=== PATIENT | male | born 2000 | race Caucasian/White ===

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

== ENCOUNTER 2023-02-18 17:03 | Emergency (ER) | payer OTHER, SELFPAY ==
--- NOTE | ~2023-02-18 | XR_ITS ---
EXAM: XR abdomen/kub 1V DATE: 02/18/2023 18:02 HISTORY: abdominal pain LLQ for about 1 week . COMPARISON: None available. FINDINGS: Clear lung bases. Normal bowel gas pattern. No organomegaly. No abnormal abdominal calcifi cation. Regional bones and soft tissues normal for age. IMPRESSION: Normal abdominal radiograph findings. Reviewed, dictated and finalized at location K.
[2023-02-18 17:20] VITALS: BP 130/71; PULSE 77; RESP 16; TEMP 36.3; O2SAT 100
--- NOTE | 2023-02-18 17:42 | ED.GENADULT ---
HPI - General Adult General Chief complaint: Abdominal Pain Stated complaint: nausea,abdominal pain Time Seen by Provider: 02/18/23 17:43 Source: patient Mode of arrival: ambulatory Limitations: no limitations History of Present Illness HPI narrative: patient is a 22-year-old male who presents with lower abdominal pain and constipation. Patient states last bowel movement was Friday after taking Dulcolax. Patient states pain started prior to that bowel movement and has increased since. Patient takes Linzess to have a bowel movement, but it has not been working lately. Patient did a self enema at home prior to arrival and reports only 2 small, hard pieces of bowel movement past. Patient has a wire setter appointment on Friday, but is concerned for worsening pain today. Patient denied any blood in last bowel movement or in fluids after enema. Denies any fever, chills, nausea, vomiting. Denies any urinary symptoms, testicular pain, penile discharge. has not taken any Tylenol, ibuprofen or naproxen for abdominal pain. Related Data Home Medications Medication Instructions Recorded Confirmed dextroamphetamine-amphetamine ER 5 5 mg PO DAILY 02/18/23 02/18/23 mg 24hr capsule,extend release linaclotide 290 mcg capsule 290 mcg PO DAILY 02/18/23 02/18/23 (Linzess) sertraline 25 mg tablet 25 mg PO HS 02/18/23 02/18/23 Allergies Allergy/AdvReac Type Severity Reaction Status Date / Time No Known Allergies Allergy Verified 02/18/23 17:20 Review of Systems Review of Systems: All systems reviewed & are unremarkable except as noted in HPI and below Constitutional: Constitutional: Denies body ache(s), Denies chills, Denies fatigue, Denies fever(s), Denies headache(s), Denies malaise and Denies weakness Eyes: Eyes: Denies blurry vision, Denies irritation and Denies loss of vision ENT: Denies otalgia, Denies headache(s), Denies nasal discharge, Denies sinus pain and Denies sore throat Cardiovascular: Cardiovascular: Denies chest pain, Denies irregular heart rhythm and Denies dyspnea Respiratory: Respiratory: Denies dyspnea Gastrointestinal: Gastrointestinal: Reports abdominal pain, Denies melena, Denies hematochezia, Reports constipation, Denies diarrhea, Reports nausea ( with eating) and Denies vomiting Musculoskeletal: Musculoskeletal: Denies back pain, Denies myalgias and Denies arthralgias Integumentary/Breasts: Skin/Breast: Denies pruritus and Denies rash Neurologic: Denies headache(s), Denies loss of vision and Denies weakness Psychiatric: Psychiatric: Reports no additional psychiatric complaints Endocrine: Endocrine: Denies fatigue PMFSH Comments At time of signature, agree with nursing past medical, surgical, social and family history. There is no relevant family history pertinent to the presenting complaint. Exam Const: General: cooperative, healthy appearing, comfortable, no acute distress and well nourished Nutritional Appearance: well nourished Orientation/consciousness: patient oriented x3 Limitations: no limitations HENMT: Head: normal to inspection, normocephalic and atraumatic Ears: hearing grossly normal bilaterally and external ears normal Face/Nose/Sinus: Normal external nose present, normal facial exam and face symmetric Face and sinus: normal facial exam and face symmetric Mouth: Yes lip normal Eyes: General: appearance normal, both eyes and all related structures Alignment and Position: alignment normal and position normal Periorbital: periorbital findings normal Eyelids: eyelids normal Pupils: Equal, round and reactive pupils present EOM: EOMs intact bilaterally Neck: Neck: normal visual inspection, full ROM and supple Chest: Chest palpation & inspection: normal inspection of the chest Resp: Effort & Inspection: normal respiratory effort and able to speak in complete sentences Auscultation: clear to auscultation bilaterally Cardio: Rate: regular rate Rhythm: regular rhythm H
== END 2023-02-18 18:49 | disposition home or self-care (01) ==
PROVIDERS: Emergency Provider Nurse Practitioner Family; PCP Family Medicine
DX: K59.00 Constipation, unspecified (principal); K21.9 Gastro-esophageal reflux disease without esophagitis; F90.9 Attention-deficit hyperactivity disorder, unspecified type; F41.9 Anxiety disorder, unspecified; F32.A Depression, unspecified
CPT/HCPCS: 74018; 81003; 99213; G0463

== ENCOUNTER 2023-03-14 17:07 | Emergency (ER) | payer OTHER, SELFPAY ==
--- NOTE | ~2023-03-14 | CT_ITS ---
EXAMINATION: CT abdomen pelvis w con DATE: 03/14/2023 19:54 INDICATION: Mild upper abdominal pain, nausea and constipation TECHNIQUE: Computed tomography (CT) of the abdomen and pelvis was performed with 100 mL Omnipaque-350 intravenous contrast. Automated exposure control and iterative reconstruction technique were employe d. The dose-length product was 249.36 mGy-cm. COMPARISON: None FINDINGS: Lung bases are clear. Heart size is normal. No pericardial or pleural effusion. Liver, gallbladder, s pleen, pancreas, bilateral adrenal glands and kidneys are normal. Moderate amount of stool scattered throughout the colon consistent with provided history of constipation. No dilated loops of bowel to s uggest obstruction. There is retained oral contrast material within the normal appendix. Bladder is n ormal. No free intraperitoneal gas or fluid. No pathologically enlarged abdominal or pelvic lymphaden opathy. Bones are unremarkable. IMPRESSION: 1. Moderate amount of colonic stool consistent with provided history of constipation. No other acute intra-abdominal/pelvic process. Reviewed, dictated and finalized at location A. IMPRESSION: 1. Moderate amount of colonic stool consistent with provided history of constip ation. No other acute intra-abdominal/pelvic process.
[2023-03-14 17:10] VITALS: BP 128/69; PULSE 71; RESP 16; TEMP 36.6; O2SAT 100
[2023-03-14 18:26] LABS: Basophils Percent Auto 0.1 % (0.2-1.2); Eosinophils Percent Auto 0.4 % (0-4.4); Hematocrit 42.6 % (42.0-52.0); Immature Granulocyte Absolute 0.01 K/mm3 (0.00-0.031); Immature Granulocyte Percent A 0.1 % (0-0.5); Lymphocytes Absolute Auto 1.83 K/mm3 (0.9-3.2); Lymphocytes Percent Auto 27.4 % (18.3-44.2); Mean Corpuscular HGB Conc 32.9 g/dl (32-36); Mean Corpuscular Hemoglobin 29.4 pg (26-34); Mean Corpuscular Volume 89.5 fl (80-100); Monocytes Absolute Auto 0.6 K/mm3 (0.1-0.6); Monocytes Percent Auto 8.2 % (2.6-8.5); Neutrophils Absolute Auto 4.2 K/mm3 (1.3-6.7); Neutrophils Percent Auto 63.8 % (45.5-73.1); Platelet Count Result 205 k/mm3 (150-375); Red Blood Count 4.76 M/mm3 (4.6-6.20); White Blood Count 6.7 K/mm3 (4.5-10.0)
[2023-03-14 18:35] LABS: Alanine Aminotransferase 17 U/L (6-50); Albumin Level 4.4 g/dL (3.5-5.1); Alkaline Phosphatase 45 U/L (38-126); Anion Gap 6 mmol/L (8-16); Aspartate Amino Transferase 26 U/L (17-59); Bilirubin,Total 0.4 mg/dL (0.2-1.3); Blood Urea Nitrogen 19 mg/dL (9-20); Carbon Dioxide 31 mmol/L (22-30); Chloride 103 mmol/L (98-107); Estimated CRCL calculation 114 ml/min; Estimated Glomerular Filt Rate > 60; Glucose 92 mg/dL (65-110); Lipase 91 U/L (23-300); Sodium 140 mmol/L (137-145)
[2023-03-14 18:52] LABS: Appearance Urine Clear (Clear); Bilirubin Urine Negative (Negative); Blood Urine Negative (Negative); Color Urine Yellow (Yellow); Glucose Urine UA Negative (Negative); Ketones Urine Negative (Negative); Leukocyte Esterase Ur Negative LEU/UL (Negative); Nitrate Urine Negative (Negative); Protein Urine Negative (Negative); Specific Grav Ur 1.013 (1.001-1.035); Urobilinogen Urine 0.2 mg/dL (<2.0); pH Urine 6.5 (5.0-9.0)
--- NOTE | 2023-03-14 18:52 | ED.ABDPAIN ---
HPI - Abdominal Pain General Chief Complaint: Abdominal Pain Stated Complaint: abd pain Time Seen by Provider: 03/14/23 17:20 Source: patient Mode of arrival: ambulatory Limitations: no limitations History of Present Illness HPI narrative: Patient is a 22 y/o male who presents to the ED with c/o abdominal pain. Patient reports having daily constant abdominal pain for the last 1 month, which waxes and wanes in intensity. He states pain is located in the distribution of his colon, typically worse throughout his lower abdomen in the morning and progresses in an upside down U-shape to his upper abdomen. Pain worse with walking, bending over. He has been evaluated for this several times at outside urgent cares. He has tried taking ibuprofen, Tums without relief. He does have a Hx of chronic constipation, but states he has had more regular BMs this week. He does intermittently take Linzess for constipation. Denies any diarrhea, rectal bleeding, melena, urinary symptoms, fevers. He saw his basket turner earlier this week and had an outpatient CT scan of his abd/pelvis. He has not heard the results of this yet. Related Data Home Medications Medication Instructions Recorded Confirmed dextroamphetamine-amphetamine ER 5 5 mg PO DAILY 02/18/23 02/18/23 mg 24hr capsule,extend release linaclotide 290 mcg capsule 290 mcg PO DAILY 02/18/23 02/18/23 (Linzess) sertraline 25 mg tablet 25 mg PO HS 02/18/23 02/18/23 Allergies Allergy/AdvReac Type Severity Reaction Status Date / Time No Known Allergies Allergy Verified 03/14/23 21:50 Review of Systems Review of Systems: CONSTITUTIONAL: Denies fever, chills, or sweats. CARDIOVASCULAR: Denies chest pain. RESPIRATORY: Denies dyspnea. GASTROINTESTINAL: See HPI. GENITOURINARY: Denies dysuria or hematuria. All systems reviewed & are unremarkable except as noted in HPI and below Exam Narrative: GENERAL: Well appearing, thin, non-toxic, in no acute distress. HEAD: Normocephalic, atraumatic. NECK: Supple. No adenopathy, no masses. RESPIRATORY: Airway patent, respirations nonlabored. Clear to auscultation bilaterally, no rales, rhonchi, wheezing. CARDIOVASCULAR: Regular rate and rhythm without murmurs, rubs, or gallops. Radial pulses 2+ and equal bilaterally. ABDOMINAL: Soft, tenderness to left lower quadrant, across upper abdomen, nondistended, no hepatosplenomegaly. Normoactive BS. MUSCULOSKELETAL: Moves all extremities. Strength/ROM intact without gross deformities. SKIN: Warm, dry, normal color. No rashes. NEURO: A&O X3. Speech clear. Cranial nerves II-XII grossly intact. Steady gait. No ataxic movements. PSYCHIATRIC: Appropriate mood and affect. Normal interaction. Course Vital Signs Vital signs: Vital Signs Temperature 98 F 03/14/23 17:10 Pulse Rate 71 03/14/23 17:10 Respiratory Rate 16 03/14/23 17:10 Blood Pressure 128/69 03/14/23 17:10 Pulse Oximetry 100 03/14/23 17:10 Oxygen Delivery Room Air 03/14/23 17:10 Temperature 98 F 03/14/23 17:10 Pulse Rate 76 03/14/23 22:21 Respiratory Rate 16 03/14/23 22:21 Blood Pressure 126/71 03/14/23 22:21 Pulse Oximetry 100 03/14/23 22:21 Oxygen Delivery Room Air 03/14/23 17:10 MDM - Abdominal Pain MDM Narrative Medical decision making narrative: Patient presented to ED with 1 month history of diffuse abdominal pain, history of chronic constipation. Vitals stable upon arrival. Afebrile. Patient in no acute distress. CBC without leukocytosis or anemia. CMP unremarkable. Normal lipase. Urine negative. CT abdomen pelvis obtained and showing findings consistent with moderate amount of stool throughout colon. No other acute findings. Discussed lab and imaging with patient. He is feeling better after dose of Bentyl. Will prescribe this for home. Discussed management of constipation and pain. Advise close follow-up with his basket turner for further evaluation. Will also provide G
[2023-03-14 18:57] LABS: Add Urine Microscopic? NO
[2023-03-14] MEDS: ONDANSETRON INJ 4 MG/2 ML VIAL IV PUSH (19:23)
[2023-03-14] MEDS: DICYCLOMINE HCL INJ 20 MG/2 ML VIAL IM (19:23)
[2023-03-14] MEDS: SODIUM CHLORIDE 0.9% IV 1,000 ML 999 ML IV CONT (19:23)
[2023-03-14 22:21] VITALS: BP 126/71; PULSE 76; RESP 16; O2SAT 100
== END 2023-03-14 22:23 | disposition home or self-care (01) ==
PROVIDERS: Emergency Provider Physician Assistant; PCP Family Medicine
DX: K59.00 Constipation, unspecified (principal); R10.9 Unspecified abdominal pain
CPT/HCPCS: 36415; 74177; 80053; 81003; 83690; 85025; 96361; 96372; 96374; 99284; J0500; J2405; J7030; Q9967

== ENCOUNTER 2023-03-15 21:20 | Emergency (ER) | payer OTHER, SELFPAY ==
[2023-03-15 21:43] VITALS: BP 122/69; PULSE 62; RESP 16; TEMP 37.2; O2SAT 100
[2023-03-15 21:56] LABS: Basophils Percent Auto 0.2 % (0.2-1.2); Eosinophils Absolute Auto 0.1 K/mm3 (0-0.3); Eosinophils Percent Auto 0.8 % (0-4.4); Hematocrit 44.6 % (42.0-52.0); Hemoglobin 14.7 g/dL (14.0-18.0); Immature Granulocyte Absolute 0.02 K/mm3 (0.00-0.031); Immature Granulocyte Percent A 0.2 % (0-0.5); Lymphocytes Absolute Auto 2.28 K/mm3 (0.9-3.2); Lymphocytes Percent Auto 25.5 % (18.3-44.2); Mean Corpuscular Hemoglobin 29.3 pg (26-34); Mean Platelet Volume 8.4 fl (7.4-10.4); Monocytes Absolute Auto 0.6 K/mm3 (0.1-0.6); Monocytes Percent Auto 6.1 % (2.6-8.5); Neutrophils Percent Auto 67.2 % (45.5-73.1); Platelet Count Result 231 k/mm3 (150-375); Red Blood Count 5.01 M/mm3 (4.6-6.20)
[2023-03-15 22:05] LABS: Alanine Aminotransferase 20 U/L (6-50); Albumin Level 4.8 g/dL (3.5-5.1); Alkaline Phosphatase 57 U/L (38-126); Anion Gap 10 mmol/L (8-16); Aspartate Amino Transferase 33 U/L (17-59); Bilirubin,Total 0.5 mg/dL (0.2-1.3); Blood Urea Nitrogen 14 mg/dL (9-20); Calcium 9.3 mg/dL (8.4-10.2); Carbon Dioxide 26 mmol/L (22-30); Chloride 103 mmol/L (98-107); Estimated CRCL calculation 114 ml/min; Estimated Glomerular Filt Rate > 60; Glucose 84 mg/dL (65-110); Lipase 93 U/L (23-300); Potassium 3.9 mmol/L (3.4-5.0); Sodium 139 mmol/L (137-145)
[2023-03-15 22:35] VITALS: BP 127/72; PULSE 61; RESP 15; O2SAT 100
[2023-03-15] MEDS: DICYCLOMINE HCL INJ 20 MG/2 ML VIAL IM (22:57)
[2023-03-15] MEDS: SUCRALFATE 1 GM TABLET PO (23:09)
--- NOTE | 2023-03-16 00:24 | ED.GENADULT ---
HPI - General Adult General Chief complaint: Abdominal Pain Stated complaint: abdominal pain Time Seen by Provider: 03/15/23 22:33 History of Present Illness HPI narrative: Patient 22-year-old gentleman who presents emerged from with chief complaint of abdominal cramping. The patient was seen in the emergency department in the last [address] scan that showed some constipation. The patient was given a prescription for Bentyl but has been unable to get it filled as [facility] is out until Friday. The patient reports the pain is very similar to what it has been. Related Data Home Medications Medication Instructions Recorded Confirmed dextroamphetamine-amphetamine ER 5 5 mg PO DAILY 02/18/23 02/18/23 mg 24hr capsule,extend release linaclotide 290 mcg capsule 290 mcg PO DAILY 02/18/23 02/18/23 (Linzess) sertraline 25 mg tablet 25 mg PO HS 02/18/23 02/18/23 Allergies Allergy/AdvReac Type Severity Reaction Status Date / Time No Known Allergies Allergy Verified 03/14/23 21:50 Review of Systems Review of Systems: A 10 system review of systems was completed on the patient and is negative except for what is stated in the HPI. Nursing and ancillary documentation was reviewed. Exam Narrative: GENERAL: Well-appearing, well-nourished, and in no acute distress. HEAD: Normocephalic, atraumatic. EYES: PERRLA and EOMI. ENT: Nares clear, no rhinorrhea or epistaxis. Mucous membranes moist. NECK: Supple. CHEST: Clear to auscultation. No respiratory distress. HEART: Regular rate and rhythm. No murmur heard. Normal peripheral pulses. ABDOMEN: Soft, mild tenderness in the epigastric region, nondistended, normal active bowel sounds. EXTREMITIES: Normal range of motion. No edema. SKIN: Warm, dry, no rash. NEURO: No focal deficits. Alert and oriented x3. PSYCH: Normal mood and affect. Course Vital Signs Vital signs: Vital Signs Temperature 37.2 C 03/15/23 21:43 Pulse Rate 62 03/15/23 21:43 Respiratory Rate 16 03/15/23 21:43 Blood Pressure 122/69 03/15/23 21:43 Pulse Oximetry 100 03/15/23 21:43 Oxygen Delivery Room Air 03/15/23 21:43 Temperature 37.2 C 03/15/23 21:43 Pulse Rate 61 03/15/23 22:35 Respiratory Rate 15 03/15/23 22:35 Blood Pressure 127/72 03/15/23 22:35 Pulse Oximetry 100 03/15/23 22:35 Oxygen Delivery Room Air 03/15/23 21:43 Medical Decision Making MDM Narrative Medical decision making narrative: Differential diagnosis includes intra-abdominal infection, UTI, gastroparesis, gastritis. Laboratory studies were obtained which showed no change in the patient's white blood cell count is currently 9.0 electrolytes are within normal limits liver enzymes are within normal limits lipase was normal. Given the lack of abnormal labs and no significant change in presentation repeat imaging was not indicated at this time. The patient will be discharged home to follow-up with his primary doctor and also will be given referrals to GI Vital Signs Vital Signs: Vital Signs Temperature 37.2 C 03/15/23 21:43 Pulse Rate 62 03/15/23 21:43 Respiratory Rate 16 03/15/23 21:43 Blood Pressure 122/69 03/15/23 21:43 Pulse Oximetry 100 03/15/23 21:43 Oxygen Delivery Room Air 03/15/23 21:43 Temperature 37.2 C 03/15/23 21:43 Pulse Rate 61 03/15/23 22:35 Respiratory Rate 15 03/15/23 22:35 Blood Pressure 127/72 03/15/23 22:35 Pulse Oximetry 100 03/15/23 22:35 Oxygen Delivery Room Air 03/15/23 21:43 Lab Data 03/15/23 21:49 03/15/23 21:49 Labs: Lab Results 03/15/23 Range/Units 21:49 WBC 9.0 (4.5-10.0) K/mm3 RBC 5.01 (4.6-6.20) M/mm3 Hgb 14.7 (14.0-18.0) g/dL Hct 44.6 (42.0-52.0) % MCV 89.0 (80-100) fl MCH 29.3 (26-34) pg MCHC 33.0 (32-36) g/dl RDW 13.0 (11.5-14.5) % Plt Count 231 (150-375) k/mm3 MPV 8.4 (7.4-10.4) fl Immature Gran % (Auto) 0.2
== END 2023-03-16 00:44 | disposition home or self-care (01) ==
PROVIDERS: Emergency Provider Emergency Medicine; PCP Family Medicine
DX: K29.00 Acute gastritis without bleeding (principal)
CPT/HCPCS: 36415; 80053; 83690; 85025; 96372; 99283; A9270; J0500

== ENCOUNTER 2023-03-19 08:00 | Outpatient (CLI) | payer OTHER, SELFPAY ==
--- NOTE | ~2023-03-19 | US_ITS ---
US abdomen limited INDICATION: Right upper quadrant pain PROCEDURE: Realtime right upper abdominal ultrasound. COMPARISON: No prior studies for comparison. FINDINGS: The pancreas is normal without focal mass or pancreatic ductal dilation. Liver echotexture is normal without focal mass or intrahepatic biliary dilatation. There is normal directional flow i n the portal vein. The gallbladder is normal without stones, gallbladder wall thickening or pericholecystic fluid. Comm on bile duct measures 4 mm. No sonographic Starr's sign. IMPRESSION: 1: Normal limited abdominal ultrasound. Reviewed, dictated and finalized at location B.
== END 2023-03-19 08:01 | disposition home or self-care (01) ==
PROVIDERS: PCP Family Medicine
DX: R10.11 Right upper quadrant pain (principal)
CPT/HCPCS: 76705

== ENCOUNTER 2023-03-20 14:51 | Outpatient (CLI) | payer OTHER, SELFPAY ==
[2023-03-25 21:32] LABS: Immunoglobulin A 207 mg/dL (47-310); TTG IGA AB <1.0 U/mL (<15.0)
[2023-03-26 11:45] LABS: Tissue Transglutaminase IgG Ab <1.0
== END 2023-03-20 14:52 | disposition home or self-care (01) ==
PROVIDERS: PCP Family Medicine; Visit Provider Nurse Practitioner
DX: R10.9 Unspecified abdominal pain (principal); R11.0 Nausea
CPT/HCPCS: 36415; 82784; 84443; 86364

== ENCOUNTER 2023-04-22 01:17 | Day surgery (SDC) | payer OTHER, SELFPAY ==
[2023-04-17 11:45] VITALS: BMI 20.7
--- NOTE | 2023-04-21 13:50 | P.PNAN_ITS ---
Anes - Initial Pre Proc Eval Procedure: Operation Date: 04/22/23 11:00 Proposed Procedures p Esophagogastroduodenoscopy - Robreto Doan MD Date/Time: 04/21/23 13:50 Surgeon: Roberto Doan MD Pre Op Diagnosis: abdominal pain, nausea Patient Data Age: 23 Gender: M Height: 1.75 m Weight: 63.5 kg Allergies Allergy/AdvReac Type Severity Reaction Status Date / Time No Known Allergies Allergy Verified 04/22/23 09:58 Home Medications Medication Instructions Recorded Confirmed Type sertraline 25 mg tablet 25 mg PO DAILY 02/18/23 04/22/23 History omeprazole 40 mg capsule,delayed 40 mg PO BID #60 caps 03/20/23 04/22/23 Rx release sucralfate 1 gram tablet See Rx Instructions .Route 03/20/23 04/22/23 Rx .COMPLEX #360 tabs dextroamphetamine-amphetamine ER 20 mg PO DAILY 04/17/23 04/22/23 History 20 mg 24hr capsule,extend release linaclotide 290 mcg capsule 290 mcg PO DAILY 04/17/23 04/22/23 History (Linzess) Patient hx anesthesia problems: none Family hx anesthesia problems: none Results Review: All pre-operative results and documents have been reviewed as part of the pre- operative evaluation. [facility] Past Medical History Medical History (Updated 04/21/23 @ 13:51 by Xiang Khan DO) Abdominal pain ADHD Anxiety Decreased appetite Irritable bowel syndrome with constipation Nausea Social History Social History Smoking status: Never smoker Alcohol intake: current Substance use: never Substance use type: does not use Living arrangements: with family Spiritual care concerns: No Anes - Eval Final PreProcedure Day of Procedure 04/21/23 13:50 Patient weight: normal Heart: regular rate and rhythm Lungs: clear to auscultation and normal air movement Airway: Mallampati scale class II Neurological: alert and oriented Last oral intake: >/= 8 hours ASA classification: II Emergent: no Anesthetic plan: proceed Anesthesia type and monitoring: general GIVS and standard monitoring Results Review: All pre-operative results and documents have been reviewed as part of the pre- operative evaluation. Informed Consent: The patient's anesthetic plan and its attendant risks and benefits were discussed with the patient/family/POA. Questions were solicited and answers provided to the satisfaction of the patient/family/POA.
[2023-04-22 09:55] VITALS: BP 114/50; PULSE 52; RESP 16; TEMP 36.4; O2SAT 100; BMI 21.9
[2023-04-22] MEDS: LACTATED RINGERS 1,000 ML 150 ML IV CONT (10:14)
--- NOTE | 2023-04-22 10:57 | PM.HPGS ---
History of Present Illness History of Present Illness Consent: Risks, benefits, and alternatives have been discussed and questions answered. Patient agrees to proceed with procedure. Chief complaint: abdominal pain, nausea Narrative: Pierce Reynaga is a 23 year old male with intermittent abdominal pain but better with ppi and carafate, never had egd Review of Systems Constitutional: Constitutional: Denies headache(s) and Denies weakness Eyes: Eyes: Denies blurry vision ENT: Reports Normal hearing present, Denies headache(s) and Denies neck pain Cardiovascular: Cardiovascular: Denies chest pain and Denies dyspnea Respiratory: Respiratory: Denies dyspnea Gastrointestinal: Gastrointestinal: Reports no additional gastrointestinal complaints Genitourinary: Genitourinary: Denies dysuria Musculoskeletal: Musculoskeletal: Denies neck pain Integumentary/Breasts: Skin/Breast: Denies dry skin Neurologic: Reports Normal hearing present, Denies headache(s) and Denies weakness Psychiatric: Psychiatric: Denies anxiety Endocrine: Endocrine: Denies change in body appearance Hematologic/Lymphatic: Hematologic/Lymphatic: Denies easy bleeding Allergic/Immunologic: Allergic/Immunologic: Denies urticaria PMFSH Past Medical History Medical History (Updated 04/21/23 @ 13:51 by Xiang Khan DO) Abdominal pain ADHD Anxiety Decreased appetite Irritable bowel syndrome with constipation Nausea Social History Social History Smoking status: Never smoker Alcohol intake: current Substance use: never Substance use type: does not use Living arrangements: with family Spiritual care concerns: No Meds Home Medications and Allergies Home Medications Medication Instructions Recorded Confirmed Type sertraline 25 mg tablet 25 mg PO DAILY 02/18/23 04/22/23 History omeprazole 40 mg capsule,delayed 40 mg PO BID #60 caps 03/20/23 04/22/23 Rx release sucralfate 1 gram tablet See Rx Instructions .Route 03/20/23 04/22/23 Rx .COMPLEX #360 tabs dextroamphetamine-amphetamine ER 20 mg PO DAILY 04/17/23 04/22/23 History 20 mg 24hr capsule,extend release linaclotide 290 mcg capsule 290 mcg PO DAILY 04/17/23 04/22/23 History (Linzess) Allergies Allergy/AdvReac Type Severity Reaction Status Date / Time No Known Allergies Allergy Verified 04/22/23 09:58 Vital Signs Vital Signs - 24 hr 04/22/23 09:55 Temperature 97.5 F L Pulse Rate 52 L Respiratory Rate 16 Blood Pressure 114/50 L Pulse Oximetry 100 Oxygen Delivery Room Air Exam Const: General: comfortable and no acute distress HENMT: Face/Nose/Sinus: Normal nares present Eyes: General: appearance normal, both eyes and all related structures Neck: Neck: no JVD Resp: Auscultation: clear to auscultation bilaterally Cardio: Rate: regular rate Rhythm: regular rhythm GI: Inspection: non-distended GI Palp: Yes Soft to palpation Skin: General skin exam: normal color Neuro: General: gait normal Speech: normal speech Extrem: General: normal to inspection Psych: Mental Status: mental status grossly normal Assessment and Plan Assessment and plan (1) Abdominal pain: Qualifiers: Abdominal location: upper abdomen, unspecified Qualified Code(s): R10.10 - Upper abdominal pain, unspecified Code(s): R10.9 - Unspecified abdominal pain Status: Acute Assessment and Plan: egd with bx
[2023-04-22 11:18] VITALS: BP 93/47; PULSE 52; RESP 18; O2SAT 98
[2023-04-22 11:28] VITALS: BP 92/48; PULSE 50; RESP 18; O2SAT 99
[2023-04-22 11:38] VITALS: BP 98/56; PULSE 48; RESP 18; O2SAT 100
== END 2023-04-22 11:44 | disposition home or self-care (01) ==
PROVIDERS: PCP Family Medicine; Visit Provider Internal Medicine Gastroenterology
PROC: 0DJ08ZZ Inspection of Upper Intestinal Tract, Via Natural or Artificial Opening Endoscopic (ICD-10-PCS; CPT 43235; principal; 2023-04-22 11:00)
DX: R10.13 Epigastric pain (principal); F90.9 Attention-deficit hyperactivity disorder, unspecified type; K58.1 Irritable bowel syndrome with constipation; F41.9 Anxiety disorder, unspecified
CPT/HCPCS: 43239; 88305; J2704; J7120

== ENCOUNTER 2023-06-13 08:06 | Outpatient (CLI) | payer OTHER, SELFPAY ==
--- NOTE | ~2023-06-13 | NM_ITS ---
EXAMINATION: NM hepatobiliary wo pharm DATE: 06/13/2023 10:31 INDICATION: Abdominal pain COMPARISON: CT dated 03/14/2023 TECHNIQUE: 4.8 mCi Tc-99m mebrofenin (Choletec) was administered intravenously. Scintigraphic images of the abdomen were obtained for one hour. At the 1 hour time point, the patient drank 8 oz Ensure, and imaging was continued for 60 minutes. Gallbladder ejection fraction was calculated by the technol ogist. FINDINGS: There is normal clearance of radiotracer from the blood pool. There is homogeneous tracer u ptake by the liver. Activity progresses to the bowel and gallbladder. The gallbladder ejection fract ion (GBEF) is 62%. Note that with this technique, normal GBEF >= 33%. IMPRESSION: 1. Normal hepatobiliary scan Reviewed, dictated and finalized at location A.
== END 2023-06-13 08:07 | disposition home or self-care (01) ==
PROVIDERS: PCP Family Medicine; Visit Provider Nurse Practitioner
DX: R10.10 Upper abdominal pain, unspecified (principal); R63.0 Anorexia; R11.0 Nausea
CPT/HCPCS: 78226; A9537

== ENCOUNTER 2024-07-09 08:05 | Outpatient (CLI) | payer OTHER, SELFPAY ==
--- NOTE | ~2024-07-09 | XR_ITS ---
EXAMINATION: XR small bowel follow through DATE: 07/09/2024 09:45 INDICATION: Epigastric abdominal pain. TECHNIQUE: Oral contrast was administered, and a time course of radiographs of the abdomen was obtain ed. Fluoroscopy of the small bowel was performed. Fluoroscopy exposure time was 0.1 minutes. The tota l number of images was 12. COMPARISON: CT abdomen and pelvis 03/14/2023 FINDINGS: There is a large volume of stool in the colon. There are no dilated loops of bowel. There is no abnor mal mass or stricture. The terminal ileum is normal. Transit time from the stomach to proximal colon was approximately 1 hour. IMPRESSION: 1. Normal small bowel series. Reviewed, dictated and finalized at location A.
== END 2024-07-09 08:06 | disposition home or self-care (01) ==
PROVIDERS: PCP Family Medicine; Visit Provider Nurse Practitioner
DX: R63.0 Anorexia (principal); R10.9 Unspecified abdominal pain; R11.0 Nausea
CPT/HCPCS: 74250

== ENCOUNTER 2024-07-29 09:28 | Outpatient (CLI) | payer OTHER, SELFPAY ==
--- NOTE | ~2024-07-29 | NM_ITS ---
EXAM: NM gastric emptying study DATE: 07/29/2024 14:44 INDICATION: Abdominal bloating TECHNIQUE: A gastric emptying study was performed using the methodology of [place] COLE, et al. J Nucl Med 2007; 48:568-572. The patient was given a meal consisting of 2 scrambled eggs labeled with 1.012 mCi Tc-99m sulfur colloid, 2 slices of toast, two packages of jam, and approximately 120 mL of water . Simultaneous anterior and posterior 1-min images of the abdomen were obtained with the patient supi ne at multiple time points over a total period of 4 hours. The geometric mean of anterior and posteri or views was determined, and the percentage retention was calculated for each time point. COMPARISON: None. FINDINGS: Gastric retention of the radiotracer-labeled meal was 24%, 11%, and 3% at the 1-hour, 2-hour, and 4-h our time points, respectively. With this technique, apparent rapid gastric emptying is suggested by < 30% gastric retention at 1 hour. Delayed gastric emptying is defined by gastric retention of >90% at 1 hour, >60% retention at 2 hours, or >10% retention at 4 hours. IMPRESSION: 1. Rapid gastric emptying. Reviewed, dictated and finalized at location A. IMPRESSION: 1. Rapid gastric emptying.
== END 2024-07-29 09:29 | disposition home or self-care (01) ==
PROVIDERS: PCP Family Medicine; Visit Provider Nurse Practitioner
DX: K63.8219 Small intestinal bacterial overgrowth, unspecified (principal); K58.1 Irritable bowel syndrome with constipation; R10.9 Unspecified abdominal pain; R63.0 Anorexia; R11.0 Nausea
CPT/HCPCS: 78264; A9541

== ENCOUNTER 2024-07-29 14:17 | Emergency (ER) | payer OTHER, SELFPAY ==
--- NOTE | 2024-07-29 14:22 | ED.EAR ---
HPI - Ear Problem General Chief complaint: Ear Stated complaint: LT Ear Pain Time Seen by Provider: 07/29/24 14:22 Source: patient Mode of arrival: ambulatory Limitations: no limitations History of Present Illness HPI Narrative: Patient is a 24-year-old male who presents with 3 days of left ear pain and ringing. He has also been sick for 2 weeks and has been on neomycin. Patient denies any decreased hearing. Patient states he has frequent ear wax buildup but denies using Q-tips. Does state he wears ear buds. Denies any fever, chills, nausea, vomiting, diarrhea. MD Complaint: ear pain Related Data Home Medications Medication Instructions Recorded Confirmed sertraline 25 mg tablet 25 mg PO DAILY 02/18/23 07/29/24 dextroamphetamine-amphetamine ER 20 mg PO DAILY 04/17/23 06/08/24 20 mg 24hr capsule,extend release linaclotide 290 mcg capsule 290 mcg PO DAILY 04/17/23 07/29/24 (Linzess) Allergies Allergy/AdvReac Type Severity Reaction Status Date / Time No Known Allergies Allergy Verified 07/29/24 14:26 Review of Systems Review of Systems: All systems reviewed & are unremarkable except as noted in HPI and below Constitutional: Constitutional: Denies body ache(s), Denies chills, Denies fever(s), Denies headache(s) and Denies malaise Eyes: Eyes: Denies blurry vision, Denies eye discharge and Denies irritation ENT: Reports otalgia, Denies headache(s), Denies nasal congestion, Denies nasal discharge and Denies sore throat Cardiovascular: Cardiovascular: Denies chest pain, Denies edema, Denies palpitations and Denies dyspnea on exertion Respiratory: Respiratory: Denies cough and Denies dyspnea on exertion Gastrointestinal: Gastrointestinal: Denies abdominal pain, Denies diarrhea, Denies nausea and Denies vomiting Musculoskeletal: Musculoskeletal: Denies back pain, Denies arthralgias and Denies muscle weakness Integumentary/Breasts: Skin/Breast: Denies pruritus and Denies rash Neurologic: Denies headache(s) Psychiatric: Psychiatric: Reports no additional psychiatric complaints Endocrine: Endocrine: Denies palpitations PMFSH Past Medical History Medical History Abdominal pain (~06/08/24) ADHD Anxiety Decreased appetite Irritable bowel syndrome with constipation Nausea Social History Social History Smoking status: Never smoker Alcohol intake: current Substance use: never Substance use type: does not use Living arrangements: with family Spiritual care concerns: No Comments At time of signature, agree with nursing past medical, surgical, social and family history. There is no relevant family history pertinent to the presenting complaint? Exam Const: General: cooperative, healthy appearing, no acute distress and well nourished Nutritional Appearance: well nourished Orientation/consciousness: patient oriented x3 Limitations: no limitations HENMT: Head: normal to inspection, normocephalic and atraumatic Ears: hearing grossly normal bilaterally, TM normal on the right, EAC's normal, no periauricular adenopathy and TM abnormal obstructed by cerumen on the left Face/Nose/Sinus: Normal external nose present, Normal nares present, Normal nasal mucous membranes and turbinates present, No nasal discharge present, normal facial exam and sinuses nontender Face and sinus: normal facial exam and sinuses nontender Mouth: Yes Normal oral and palatal mucosa present, Yes lip normal, Yes tongue normal and Yes moist mucous membranes Throat: posterior oropharynx normal, tonsils normal and uvula midline Eyes: General: appearance normal, both eyes and all related structures Alignment and Position: alignment normal and position normal Eyelids: eyelids normal Pupils: Equal, round and reactive pupils present EOM: EOMs intact bilaterally Neck: Neck: normal visual inspection, full ROM, no lymphadenopa
[2024-07-29 14:23] VITALS: BP 123/74; PULSE 93; RESP 16; TEMP 36.8; O2SAT 100
[2024-07-29] MEDS: HYDROGEN PEROXIDE 3% SOLN(*SP) 473 ML BOTTLE 60 ML IRRIGATION (14:33)
== END 2024-07-29 14:50 | disposition home or self-care (01) ==
PROVIDERS: Emergency Provider Nurse Practitioner Family; PCP Family Medicine
DX: H61.22 Impacted cerumen, left ear (principal); F90.9 Attention-deficit hyperactivity disorder, unspecified type
CPT/HCPCS: 69209; 99212; A9270; G0463